=== PATIENT | male | born 1955 | race Asian ===

== ENCOUNTER 2021-07-13 05:02 | Day surgery (SDC) | payer OTHER ==
[2021-07-13 07:42] VITALS: BMI 24.7
[2021-07-13 09:10] VITALS: TEMP 97.8
[2021-07-13 09:57] VITALS: BP 130/63; PULSE 48
== END 2021-07-13 09:57 | disposition home or self-care (01) ==
LOC: JASU-ENDO 05:02
PROVIDERS: ATTEND Internal Medicine Gastroenterology
PROC: 0DBN8ZX Excision of Sigmoid Colon, Via Natural or Artificial Opening Endoscopic, Diagnostic (ICD-10-PCS; 2021-07-13)
PROC: 0DBH8ZX Excision of Cecum, Via Natural or Artificial Opening Endoscopic, Diagnostic (ICD-10-PCS; principal; 2021-07-13 08:45)
DX: Z12.11 Encounter for screening for malignant neoplasm of colon (principal); D12.0 Benign neoplasm of cecum; D12.7 Benign neoplasm of rectosigmoid junction; I10 Essential (primary) hypertension; I48.91 Unspecified atrial fibrillation; E11.9 Type 2 diabetes mellitus without complications
CPT/HCPCS: 88305-TC